=== PATIENT | female | born 1995 | race African-American/Black ===

== ENCOUNTER 2018-02-24 04:19 | Emergency (ER) | payer SELFPAY ==
[~2018-02-24] VITALS: Ht 175.3 cm; Wt 74.4 kg
[2018-02-24 04:53] VITALS: BP 125/80
[2018-02-24] MEDS ORDERED: KETOROLAC TROMETH 60MG/2ML VIAL IM ONE (05:00)
[2018-02-24] MEDS ORDERED: cefTRIAXone SOD 1,000 MG VL IM ONE (05:00)
[2018-02-24] MEDS ORDERED: LIDOCAINE 1% HCL (LOCAL ANESTH.) INJ 20ML MDV ONE (06:02)
== END 2018-02-24 05:25 | disposition home or self-care (01) ==
LOC: ER 04:19
DX: K02.9 Dental caries, unspecified (principal)
CPT/HCPCS: 96372; 99284; J0696; J1885; J2001

== ENCOUNTER 2018-02-24 18:06 | Emergency (ER) | payer SELFPAY ==
[~2018-02-24] VITALS: Ht 175.3 cm; Wt 74.4 kg
[2018-02-24 19:39] VITALS: BP 135/78
[2018-02-24] MEDS ORDERED: HYDROcodone-ACET 10/325MG TAB PO ONE (19:45)
== END 2018-02-24 21:21 | disposition home or self-care (01) ==
LOC: ER 18:08
DX: S02.5XXD Fracture of tooth (traumatic), subsequent encounter for fracture with routine healing (principal); K02.9 Dental caries, unspecified; X58.XXXD Exposure to other specified factors, subsequent encounter